=== PATIENT | female | born 1980 | race Two or more races ===

== ENCOUNTER 2021-08-10 12:40 | Emergency (ER) | payer SELFPAY ==
[~2021-08-10] VITALS: Ht 167.6 cm; Wt 59.0 kg
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
[2021-08-10] MEDS: HYDROMORPHONE HCL 2 MG TABLET PO STA (13:24)
[2021-08-10] MEDS ORDERED: HYDROMORPHONE HCL 2 MG TABLET ONE ×2 (14:04→14:30)
--- NOTE | 2021-08-10 14:10 | NUR ---
PT GONE TO CT
--- NOTE | 2021-08-10 14:38 | NUR ---
FREELANCE MAKEUP ARTIST AT BEDSIDE
[2021-08-10 16:33] LABS: BASOPHILS % (AUTO) 0.7 % (0.0-2.0); EOSINOPHILS % (AUTO) 1.7 % (0.0-6.0); HEMATOCRIT 34 % (33-45); HEMOGLOBIN 10.4 g/dL (11.5-14.8); LYMPHOCYTES % (AUTO) 16.3 % (20.0-44.0); MEAN CORPUSCULAR HGB CONC 31 g/dl (31.0-36.0); MEAN CORPUSCULAR VOLUME 76 fL (82-100); MONOCYTES # (AUTO) 0.6 K/uL (0.1-1.30); MONOCYTES % (AUTO) 9.1 % (2.0-12.0); NEUTROPHILS # (AUTO) 4.6 K/uL (1.8-8.9); NEUTROPHILS % (AUTO) 72.2 % (43.0-81.0); PLATELET COUNT (AUTO) 299 K/uL (150-450); RED BLOOD CELL COUNT(AUTO) 4.44 MIL/uL (4.0-5.2); WHITE BLOOD COUNT (AUTO) 6.4 K/uL (4.3-11.0)
[2021-08-10 16:45] LABS: CALCIUM, SERUM 8.2 mg/dL (8.5-10.1); CREATININE 0.8 mg/dL (0.6-1.3); POTASSIUM 3.7 mmol/L (3.5-5.1)
[2021-08-10] MEDS: HYDROMORPHONE HCL 2 MG TABLET PO PRN (16:47)
[2021-08-10] MEDS ORDERED: HYDROMORPHONE 1 MG/1 ML DISP.SYRIN ONE ×2 (16:48→19:00)
[2021-08-10 16:50] LABS: ALBUMIN 3.8 g/dL (3.4-5.0); BILIRUBIN,DIRECT 0.3 mg/dL (0.0-0.2); BILIRUBIN,TOTAL 1.2 mg/dL (0.2-1.0); TOTAL PROTEIN, SERUM 8.3 g/dL (6.4-8.2)
[2021-08-10] MEDS: HYDROMORPHONE 1 MG/1 ML DISP.SYRIN IV ONE ×2 (16:57→19:10)
--- NOTE | 2021-08-10 17:54 | NUR ---
PT COMPLAINING OF CHEST PAIN. MD MADE AWARE. PT INSTUCTED TO TAKE HER PRESCRIPTION NITROGLYCERINE 0.4MG TABLETS. CONTINNUING TO MONITOR.
--- NOTE | 2021-08-10 17:54 | NUR ---
PT PLAED ON MONITOR. LINE RUNNER AT BEDSIDE, NORMAL SINUS RHYTHM. BLOOD SAMPLE OBTAINED AND SENT TO LAB.
[2021-08-10] MEDS ORDERED: LORAZEPAM INJ 2 MG/ML VIAL ONE (19:01)
[2021-08-10] MEDS: LORAZEPAM INJ 2 MG/ML VIAL IV ONE (19:10)
--- NOTE | 2021-08-10 19:40 | NUR ---
CALLED LAB FOR SHI APARICIOW
--- NOTE | 2021-08-10 19:45 | NUR ---
lab at bedside
[2021-08-10] MEDS: HYDROCODONE/APAP 5/325MG TABLET PO ONE (20:00)
[2021-08-10] MEDS: ACETAMINOPHEN 325 MG TABLET PO ONE (20:00)
[2021-08-10] MEDS ORDERED: ACETAMINOPHEN 325 MG TABLET ONE (20:02)
[2021-08-10] MEDS ORDERED: HYDROCODONE/APAP 5/325MG TABLET ONE (20:02)
[2021-08-10] MEDS ORDERED: HYDR-4275 PO (20:57)
--- NOTE | 2021-08-10 21:06 | NUR ---
IV removed. Catheter intact and site benign. Pressure and 4x4 applied to site. No bleeding noted.
--- NOTE | 2021-08-10 21:06 | NUR ---
Patient discharged to home in stable condition. Written and verbal after care instructions given. Patient verbalizes understanding of instruction. Pt ambulated out of ED. VSS.
[2021-08-10 21:07] VITALS: BP 111/65
--- NOTE | 2021-08-10 21:12 | NUR ---
Patient discharged to home in stable condition. Written and verbal after care instructions given. Patient verbalizes understanding of instruction.
== END 2021-08-10 21:13 | disposition home or self-care (01) ==
LOC: ER 12:44
DX: S90.02XA Contusion of left ankle, initial encounter (principal); S50.01XA Contusion of right elbow, initial encounter; S40.022A Contusion of left upper arm, initial encounter; S40.021A Contusion of right upper arm, initial encounter; R07.81 Pleurodynia; Z85.72 Personal history of non-Hodgkin lymphomas; Z88.0 Allergy status to penicillin; Z79.899 Other long term (current) drug therapy; Y04.8XXA Assault by other bodily force, initial encounter; Y93.89 Activity, other specified; Y92.89 Other specified places as the place of occurrence of the external cause; Y99.8 Other external cause status
CPT/HCPCS: 36415; 71045; 71250; 73030; 73060 ×2; 73080; 73130 ×2; 73590; 73610; 74176; 80048; 80076; 83690; 84484 ×2; 85025; 93005 ×2; 96374; 96375; 96376; 99285; J1170 ×2; J2060